=== PATIENT | male | born 2000 | race Two or more races ===

== ENCOUNTER 2022-04-12 20:45 | Emergency (ER) | payer SELFPAY ==
--- NOTE | 2022-04-12 21:54 | NUR ---
Called frist time- no show in lobby or outside.
--- NOTE | 2022-04-12 22:10 | NUR ---
called second time- no show in lobby or outside.
--- NOTE | 2022-04-12 22:16 | NUR ---
PATIENT LEFT WITHOUT BEING SEEN BY DR. Zafar. NO FURTHER CARE PROVIDED FOR PATIENT.
== END 2022-04-12 22:16 | disposition left against medical advice (07) ==
LOC: MED 20:45
DX: T14.90XA Injury, unspecified, initial encounter (principal); Z53.21 Procedure and treatment not carried out due to patient leaving prior to being seen by health care provider; X58.XXXA Exposure to other specified factors, initial encounter; Y93.89 Activity, other specified; Y92.89 Other specified places as the place of occurrence of the external cause; Y99.8 Other external cause status